=== PATIENT | female | born 2000 | race Caucasian/White ===

== ENCOUNTER 2021-09-02 04:29 | Observation (INO) ==
[2021-09-01 20:58] LABS: Basophils % 0.2 %; Eosinophils # 0.1 K/mcL (0.0-0.6); Eosinophils % 0.6 %; Hemoglobin 10.1 g/dL (11.5-15.4); Immature Granulocytes % 0.8 % (0-4); Lymphocytes % 15.6 %; Mean Corpuscular HGB Conc 31.6 g/dL (31.6-35.5); Mean Corpuscular Hemoglobin 26.4 pg (28.0-33.3); Mean Corpuscular Volume 83.6 fL (83.0-100.0); Mean Platelet Volume 9.6 fL (9.4-12.4); Monocytes # 0.9 K/mcL (0.0-1.3); Monocytes % 7.2 %; Neutrophils # 9.8 K/mcL (1.6-8.9); Platelet Count 282 K/mcL (140-400); Red Blood Count 3.83 M/mcL (3.82-4.97); Red Cell Distribution Width 13.2 % (11.5-14.5); Segmented Neutrophils % 75.6 %; White Blood Count 12.9 K/mcL (4.3-11.1)
[~2021-09-02 04:29] MED LIST: Ampicillin 2 MG in 0.9 % Sodium Chloride Mini Bag 100 ML IVPB SCH; Azithromycin 250 MG TABLET PO ONE; Betamethasone Acet/SodPhos 30 MG/5 ML VIAL IM SCH; Calcium Gluconate 1,000 MG/10 ML VIAL IVP PRN; Magnesium Sulf 20 gm/SW 500mL 20 GM/500 ML IV.SOLN IVC SCH; Magnesium Sulf 20 gm/SW 500mL 4 GM/100 ML BAG IV ONE; NIFEdipine Immed Rel 10 MG CAPSULE PO SCH; Ondansetron 4 MG/2 ML VIAL IVP ONE; Ondansetron 4 MG/2 ML VIAL ONE; Ringers Solution, Lactated 1,000 ML ONE
== END 2021-09-02 22:27 | disposition short-term general hospital (02) ==
LOC: 1NENULAB
PROVIDERS: ADMIT Registered Nurse; ATTEND Registered Nurse